=== PATIENT | male | born 1995 | race Caucasian/White ===

== ENCOUNTER 2018-01-10 16:16 | Emergency (ER) | payer MEDICAID, OTHER ==
[~2018-01-10] VITALS: Ht 170.2 cm; Wt 50.2 kg
[~2018-01-10 16:16] MED LIST: DOCU-28 PO; DOXY100C2 PO; HYDR25SU32 RC; NO HOME MEDS; ONDA4TAB6 PO
[2018-01-10 16:20] VITALS: BP 115/54
[2018-01-10] MEDS ORDERED: bupivacaine 0.25%/epinephrine 1:200,000 inj (contains preserv. MDV) IJ ONE (16:35)
== END 2018-01-10 17:37 | disposition home or self-care (01) ==
LOC: ER 16:16
DX: L02.212 Cutaneous abscess of back [any part, except buttock and flank] (principal)
CPT/HCPCS: 10060; 87070; 87077; 87186; 99284; A6449

== ENCOUNTER 2018-11-28 11:43 | Emergency (ER) | payer MEDICAID, OTHER ==
[~2018-11-28] VITALS: Ht 177.8 cm; Wt 65.0 kg
[~2018-11-28 11:43] MED LIST changes: -DOXY100C2 PO
[2018-11-28 11:58] VITALS: BP 133/70
[2018-11-28] MEDS ORDERED: PENI500T2 PO (13:44)
== END 2018-11-28 13:54 | disposition home or self-care (01) ==
LOC: ER 11:44
DX: K08.89 Other specified disorders of teeth and supporting structures (principal); Z79.899 Other long term (current) drug therapy
CPT/HCPCS: 99283

== ENCOUNTER 2018-12-26 13:02 | Emergency (ER) | payer MEDICAID ==
[~2018-12-26] VITALS: Ht 180.3 cm; Wt 62.3 kg
[~2018-12-26 13:02] MED LIST changes: +PENI500T2 PO
[2018-12-26 13:15] VITALS: BP 107/72
== END 2018-12-26 14:36 | disposition home or self-care (01) ==
LOC: ER 13:02
DX: S62.394A Other fracture of fourth metacarpal bone, right hand, initial encounter for closed fracture (principal); Z79.899 Other long term (current) drug therapy; W22.8XXA Striking against or struck by other objects, initial encounter; Y93.89 Activity, other specified; Y92.89 Other specified places as the place of occurrence of the external cause; Y99.8 Other external cause status
CPT/HCPCS: 29125; 73130; 99283

== ENCOUNTER 2019-11-18 13:28 | Emergency (ER) | payer MEDICAID ==
[~2019-11-18] VITALS: Ht 180.3 cm; Wt 65.9 kg
[~2019-11-18 13:28] MED LIST changes: -PENI500T2 PO
[2019-11-18 13:35] VITALS: BP 148/83
[2019-11-18] MEDS ORDERED: ketorolac trometh. 30mg/ml inj. IM ONE (13:55)
== END 2019-11-18 14:15 | disposition home or self-care (01) ==
LOC: ER 13:28
DX: S93.621A Sprain of tarsometatarsal ligament of right foot, initial encounter (principal); F17.200 Nicotine dependence, unspecified, uncomplicated; Z79.899 Other long term (current) drug therapy; X58.XXXA Exposure to other specified factors, initial encounter; Y93.89 Activity, other specified; Y92.89 Other specified places as the place of occurrence of the external cause; Y99.8 Other external cause status
CPT/HCPCS: 99282

== ENCOUNTER 2020-10-18 11:51 | Emergency (ER) | payer MEDICAID ==
[~2020-10-18] VITALS: Ht 180.3 cm; Wt 58.9 kg
[2020-10-18 12:18] VITALS: BP 126/78
[2020-10-18] MEDS ORDERED: AMOX-422 PO (12:47)
[2020-10-18] MEDS ORDERED: BENZ-16 PO (12:47)
[2020-10-18] MEDS ORDERED: ALBU8HFA PO (12:47)
== END 2020-10-18 13:21 | disposition home or self-care (01) ==
LOC: ER 11:51
DX: J20.9 Acute bronchitis, unspecified (principal); R05 Cough; Z79.2 Long term (current) use of antibiotics; Z79.899 Other long term (current) drug therapy
CPT/HCPCS: 99283